=== PATIENT | male | born 2000 | race Caucasian/White ===

== ENCOUNTER 2021-08-24 18:34 | Emergency (ER) | payer OTHER ==
[2021-08-24 18:55] LABS: RAPID STREP SCREEN Negative (Negative)
[2021-08-24] MEDS ORDERED: cephALEXin 250 MG CAPSULE PO STA (20:02)
[2021-08-24] MEDS ORDERED: DEXAMETHASONE 10 MG/ML VIAL PO STA (20:02)
[2021-08-24] MEDS ORDERED: CHERRY SYRUP 10 ML UDC PO ONE (20:02)
--- NOTE | 2021-08-24 20:06 | ED Physician Documentation ---
History of Present Illness - Stated complaint Stated Complaint: SWOLLEN TONSILS - Chief complaint Chief Complaint: Heent - History obtained from History obtained from: Patient - History of Present Illness Timing: Today Pain level max: 6 Pain level now: 5 - Additonal information Additional information: 20-year-old male presents to the emergency department complaining of a sore throat for the past several weeks, gradually worsening over the past few days. Has also had rhinorrhea and nasal congestion. No fevers. No chills. Fully vaccinated for Covid. No cough currently. No nausea, vomiting or abdominal pain. Worse with swallowing, nothing makes it better. Review of Systems Constitutional: denies: Fever, Chills GI: denies: Vomiting, Diarrhea Skin: denies: Rash PD PAST MEDICAL HISTORY - Past Medical History Past Medical History: No - Past Surgical History Past Surgical History: No - Present Medications Home Medications: Ambulatory Orders Medication Instructions Recorded Confirmed Cetirizine HCl/Pseudoephedrine 1 each PO BID PRN #30 ea 08/24/21 [Zyrtec-D Tablet] cephALEXin [Keflex] 500 mg PO Q6H #40 cap 08/24/21 - Allergies Allergies/Adverse Reactions: Allergies Allergy/AdvReac Type Severity Reaction Status Date / Time No Known Drug Allergies Allergy Verified 08/24/21 18:38 - Social History Does the pt smoke?: No Smoking Status: Never smoker Does the pt drink ETOH?: No Does the pt have substance abuse?: No - Immunizations Immunizations are current?: Yes PD ED PE NORMAL - Vitals Vital signs reviewed: Yes - General General: Alert and oriented X 3, No acute distress - HEENT HEENT: Ears normal, Moist mucous membranes, Other (Posterior oropharynx is erythematous with tonsillar exudates. Normal phonation. No trismus. Uvula midline.) - Neck Neck: Supple, no meningeal sign - Cardiac Cardiac: RRR - Respiratory Respiratory: No respiratory distress, Clear bilaterally - Derm Derm: Warm and dry, No rash - Neuro Neuro: Alert and oriented X 3 Results - Vitals Vitals: Vital Signs - 24 hr 08/24/21 08/24/21 18:38 20:14 Temperature 36.7 C 36.6 C Heart Rate 100 89 Respiratory 16 16 Rate Blood Pressure 116/74 115/72 O2 Saturation 98 99 Oxygen O2 Source Room air - Labs Labs: Laboratory Tests 08/24/21 18:41 Group A Strep Rapid Negative PD MEDICAL DECISION MAKING - ED course Complexity details: considered differential, d/w patient ED course: Patient with exam concerning for tonsillitis. Rapid strep is negative. We will treat with antibiotics for tonsillitis. We will have him follow-up with his doctor for further care. Given dexamethasone as well. Will place on decongestants for the nasal congestion. Patient is well-appearing, nontoxic. Afebrile. Patient counseled regarding signs and symptoms for which I believe and urgent re-evaluation would be necessary. Patient with good understanding of and agreement to plan and is comfortable going home at this time This document was made in part using voice recognition software. While efforts are made to proofread this document, sound alike and grammatical errors may occur. Departure - Departure Disposition: 01 Home, Self Care Clinical Impression: Pharyngitis Qualifiers: Pharyngitis/tonsillitis etiology: unspecified etiology Qualified Code(s): J02.9 - Acute pharyngitis, unspecified URI (upper respiratory infection) Qualifiers: URI type: unspecified viral URI Qualified Code(s): J06.9 - Acute upper respiratory infection, unspecified Condition: Good Instructions: ED Strep Pharyngitis Poss Follow-Up: your,doctor in 1 week [Other] Prescriptions: cephALEXin [Keflex] 500 mg PO Q6H #40 cap Cetirizine HCl/Pseudoephedrine [Zyrtec-D Tablet] 1 each PO BID PRN #30 ea PRN Reason: nasal congestion Comments: Drink plenty of fluids and rest. Return if you worsen. Your prescriptions were sent to [facility] in [place]. Return if you worsen. Discharge Date/Time: 08/24/21 20:14
[2021-08-24 20:15] VITALS: BP 115/72
== END 2021-08-24 20:14 | disposition home or self-care (01) ==
LOC: ED 18:34
DX: J06.9 Acute upper respiratory infection, unspecified (principal); J02.9 Acute pharyngitis, unspecified
CPT/HCPCS: 87070; 87430; 99282; 99283; A9270

== ENCOUNTER 2022-05-05 08:00 | Outpatient (CLI) | payer OTHER ==
--- NOTE | 2022-05-05 13:36 | XRAY Report ---
PROCEDURE: Foot 3 View RT INDICATIONS: R FOOT PX TECHNIQUE: 3 views of the foot were acquired. COMPARISON: None. FINDINGS: Bones: There is a nondisplaced transverse fracture in the distal aspect of the third proximal phalanx . No suspicious bony lesions. Soft tissues: No tibiotalar joint effusion. Achilles tendon appears normal. IMPRESSION: Nondisplaced fracture of the third proximal phalanx. Reviewed by: Aruna Teague MD on 05/05/2022 1:34 PM PDT Approved by: Aruna Teague MD on 05/05/2022 1:34 PM PDT Station ID: [id number]
== END 2022-05-05 23:59 | disposition home or self-care (01) ==
LOC: DI.N 08:00
PROVIDERS: ATTEND Registered Nurse
DX: S92.534A Nondisplaced fracture of distal phalanx of right lesser toe(s), initial encounter for closed fracture (principal)